=== PATIENT | female | born 1970 | race African-American/Black ===

== ENCOUNTER 2016-09-10 16:27 | Inpatient (IN) | payer OTHER ==
--- NOTE | 2016-09-10 16:39 | ER Document Report ---
ED Medical Screen (RME) - General Chief Complaint: Vaginal Bleeding Stated Complaint: VAGINAL BLEEDING Mode of Arrival: Ambulatory Information source: Patient Notes: pt presents from Dr Sandoval for low iron, recently irregular menses. Also c/o tired, dizzy. Denies hx of anemia. I have greeted and performed a rapid initial assessment of this patient. A comprehensive ED assessment and evaluation of the patient, analysis of test results and completion of the medical decision making process will be conducted by additional ED providers. TRAVEL OUTSIDE OF THE [place] IN LAST 30 DAYS: No Past Medical History - Social History Chew tobacco use (# tins/day): No Frequency of alcohol use: None Drug Abuse: None Renal/ Medical History: Denies: Hx Peritoneal Dialysis Physical Exam - Vital signs Vitals: Temp Pulse Resp BP Pulse Ox 98.2 F 81 16 127/79 H 100 09/10/16 16:34 09/10/16 16:34 09/10/16 16:34 09/10/16 16:34 09/10/16 16:34 Course - Vital Signs Vital signs: Temp Pulse Resp BP Pulse Ox 98.2 F 81 16 127/79 H 100 09/10/16 16:34 09/10/16 16:34 09/10/16 16:34 09/10/16 16:34 09/10/16 16:34
[2016-09-10 17:02] LABS: ABSOLUTE BASOPHILS # (AUTO) 0.1 10^3/uL (0.0-0.2); ABSOLUTE EOSINOPHILS # (AUTO) 0.1 10^3/uL (0.0-0.6); ABSOLUTE LYMPHOCYTES (AUTO) 1.7 10^3/uL (0.5-4.7); ABSOLUTE MONOCYTES (AUTO) 0.3 10^3/uL (0.1-1.4); ABSOLUTE NEUT (AUTO) 3.9 10^3/uL (1.7-8.2); BASOPHILS % (AUTO) 1.7 % (0-2); EOSINOPHILS % (AUTO) 1.2 % (0-6); HEMATOCRIT 23.9 % (36.0-47.0); LYMPHOCYTES % (AUTO) 28.3 % (13-45); MEAN CORPUSCULAR HEMOGLOBIN 15.5 pg (27.0-33.4); MEAN CORPUSCULAR HGB CONC 26.9 g/dL (32.0-36.0); MONOCYTES % (AUTO) 5.2 % (3-13); RED BLOOD COUNT 4.14 10^6/uL (3.72-5.28); RED CELL DISTRIBUTION WIDTH 20.5 % (11.5-14.0); SEGMENTED NEUTROPHILS % (AUTO) 63.6 % (42-78); WHITE BLOOD COUNT 6.2 10^3/uL (4.0-10.5)
[2016-09-10 17:03] LABS: APPEARANCE,URINE CLEAR; BILIRUBIN,URINE NEGATIVE (NEGATIVE); GLUCOSE, URINE NEGATIVE (NEGATIVE); KETONES,URINE NEGATIVE (NEGATIVE); LEUKOCYTE ESTERASE,URINE NEGATIVE (NEGATIVE); NITRITE,URINE NEGATIVE (NEGATIVE); PROTEIN,URINE NEGATIVE (NEGATIVE); URINE SPECIFIC GRAVITY 1.014; UROBILINOGEN,URINE NEGATIVE mg/dL (<2.0)
[2016-09-10 17:07] LABS: PROTHROMBIN TIME 13.7 SEC (11.4-15.4)
[2016-09-10 17:21] LABS: ALANINE AMINOTRANSFERASE 18 U/L (9-52); ALBUMIN 4.6 g/dL (3.5-5.0); ALKALINE PHOSPHATASE 62 U/L (38-126); ANION GAP 12 (5-19); ASPARTATE AMINO TRANSFERASE 21 U/L (14-36); BLOOD UREA NITROGEN 11 mg/dL (7-20); CALCIUM 11.5 mg/dL (8.4-10.2); CARBON DIOXIDE 22 mmol/L (22-30); CHLORIDE 107 mmol/L (98-107); CREATININE RESULT 0.83 mg/dL (0.52-1.25); GLUCOSE 90 mg/dL (75-110); IRON 12.1 ug/dL (37-170); POTASSIUM 3.9 mmol/L (3.6-5.0); SODIUM 141.2 mmol/L (137-145); TOTAL PROTEIN 8.9 g/dL (6.3-8.2)
[2016-09-10 17:25] LABS: HGB HCT DIFFERENCE -4.7
[2016-09-10 17:27] LABS: ANISOCYTOSIS 2+; HELMET CELLS SLIGHT; HYPOCHROMASIA 3+; MICROCYTOSIS 3+; OVALOCYTES SLIGHT; POIKILOCYTOSIS 2+; TARGET CELLS SLIGHT; TEAR DROP CELLS SLIGHT
[2016-09-10 17:28] LABS: MEAN CORPUSCULAR VOLUME 58 fl (80-97)
[2016-09-10 17:30] LABS: HEMOGLOBIN 6.4 g/dL (12.0-15.5)
[2016-09-10] MEDS ORDERED: NORMAL SALINE 250 ML IV PRN (17:57)
[2016-09-10] MEDS ORDERED: FERROUS SULFATE 325 MG TABLET PO ONE (18:15)
[2016-09-10] MEDS ORDERED: ONDANSETRON HCL INJ/PF 4 MG/2 ML SDV IV ONE (18:20)
[2016-09-10] MEDS ORDERED: ESTROGENS,CONJUGATED 25 MG VIAL IV ONE (18:20)
--- NOTE | 2016-09-10 18:21 | ER Document Report ---
ED GI/ - General Chief Complaint: Vaginal Bleeding Stated Complaint: VAGINAL BLEEDING Mode of Arrival: Ambulatory Notes: The patient is a 46-year-old female presents with 2 days of heavy vaginal bleeding and a feeling of lightheadedness. She saw her primary care physician earlier today and was sent to the ER after her hemoglobin was 6 in the office. She has never required a blood transfusion in the past. She says that she is soaking through about 1 pad every 2-3 hours. Denies chest pain, shortness of breath, pelvic pain, urinary symptoms, headache, nausea, vomiting or fevers. TRAVEL OUTSIDE OF THE [place] IN LAST 30 DAYS: No Past Medical History - General Information source: Patient - Social History Smoking Status: Unknown if Ever Smoked Chew tobacco use (# tins/day): No Frequency of alcohol use: None Drug Abuse: None Family History: Reviewed & Not Pertinent Patient has suicidal ideation: No Patient has homicidal ideation: No Renal/ Medical History: Denies: Hx Peritoneal Dialysis Past Surgical History: Reports: Hx Section - x2 - Immunizations Hx Diphtheria, Pertussis, Tetanus Vaccination: Yes Review of Systems - Review of Systems Notes: REVIEW OF SYSTEMS: CONSTITUTIONAL: -fevers, -chills EENT: -eye pain, -difficulty swallowing, -nasal congestion CARDIOVASCULAR:-chest pain, -syncope. RESPIRATORY: -cough, -SOB GASTROINTESTINAL: -abdominal pain, - nausea, -vomiting, -diarrhea GENITOURINARY: -dysuria, -hematuria, +menorrhagia MUSCULOSKELETAL: -back pain, -neck pain SKIN: -rash or skin lesions. HEMATOLOGIC: -easy bruising or bleeding. LYMPHATIC: -swollen, enlarged glands. NEUROLOGICAL: -altered mental status or loss of consciousness, -headache, - neurologic symptoms PSYCHIATRIC: -anxiety, -depression. ALL OTHER SYSTEMS REVIEWED AND NEGATIVE. Physical Exam - Vital signs Vitals: Temp Pulse Resp BP Pulse Ox 98.2 F 81 16 127/79 H 100 09/10/16 16:34 09/10/16 16:34 09/10/16 16:34 09/10/16 16:34 09/10/16 16:34 - Notes Notes: PHYSICAL EXAMINATION: GENERAL: Well-appearing, well-nourished and in no acute distress. HEAD: Atraumatic, normocephalic. EYES: Pupils equal round and reactive to light, extraocular movements intact, sclera anicteric, conjunctiva are pale. ENT: nares patent, oropharynx clear without exudates. Moist mucous membranes. NECK: Normal range of motion, supple without lymphadenopathy LUNGS: Breath sounds clear to auscultation bilaterally and equal. No wheezes rales or rhonchi. HEART: Regular rate and rhythm without murmurs ABDOMEN: Soft, nontender, normoactive bowel sounds. No guarding, no rebound. No masses appreciated. EXTREMITIES: Normal range of motion, no pitting or edema. No cyanosis. NEUROLOGICAL: Cranial nerves grossly intact. Normal speech, normal gait. Normal sensory, motor, and reflex exams. PSYCH: Normal mood, normal affect. SKIN: Warm, Dry, normal turgor, no rashes or lesions noted. Course - Re-evaluation Re-evalutation: 09/10/16 18:21 Patient with symptomatic anemia and heavy vaginal bleeding. Spoke to Dr. Stephanie Brownlee ([facility] urologic surgeon). Recommends 20 mg IV estrogen and 8 mg IV Zofran to help with active bleeding. She will admit the patient to the second floor, but she is about to start a OR case. Ultrasound pending. Patient 's blood pressure is stable at this time. Patient consented for blood transfusion due to hemoglobin 6.4. - Vital Signs Vital signs: Temp Pulse Resp BP Pulse Ox 98.2 F 81 15 127/79 H 89 L 09/10/16 16:34 09/10/16 16:34 09/10/16 19:11 09/10/16 16:34 09/10/16 19:11 - Laboratory Result Diagrams: 09/10/16 16:45 09/10/16 16:45 Laboratory results interpreted by me: 09/10/16 09/10/16 09/10/16 16:45 16:45 16:45 Hgb 6.4 L Hct 23.9 L MCV 58 L MCH 15.5 L MCHC 26.9 L RDW 20.5 H Plt Count 463 H Calcium 11.5 H Iron 12.1 L Total Protein 8.9 H Urine Blood SMALL H Crossmatch 09/10/16 16:45 Hgb Hct MCV MCH MCHC RDW Plt Count Calcium Iron Total Protein Urine Blood Crossmatch See Detail Discharge - Discharge Clinical Impression: Menorrhagia Qualifiers: Menorrahagia type: with regular cycle Qualified Code(s): N92.0 - Excessive and frequent menstruation with regular cycle Anemia Qualifiers: Anemia type: unspecified type Qualified Code(s): D64.9 - Anemia, unspecified Condition: Stable Disposition: ADMITTED INPATIENT Admitting Provider: Dr. Brownlee Unit Admitted: Labor and Delivery
--- NOTE | 2016-09-10 21:34 | EKG REPORT ---
SEVERITY:- OTHERWISE NORMAL ECG - SINUS ARRHYTHMIA, RATE 57-79 : Confirmed by: Quan Allan 10-Sep-2016 21:33:32
--- NOTE | 2016-09-10 21:53 | HISTORY AND PHYSICAL E ---
History and Physical NAME: CLIFF MORENO : 1970 AGE: 46Y ADMITTED: 09/10/2016 ROOM: ED06 CHIEF COMPLAINT: Abnormal bleeding for the last couple of weeks and anemia. HISTORY OF PRESENT ILLNESS: The patient is a 46-year-old, para 2, who generally has normal menstrual cycles, however, for the last couple of weeks has been bleeding up to a pad every 2 hours. She was seen by her primary care today and was told she was anemic with a hemoglobin of 6.5. She was told to come to the hospital. REVIEW OF SYSTEMS: She denies pelvic pain. She does admit frequent headaches, fatigue and some lightheadedness and dizziness. She denies any abnormal vaginal discharge or other easy bleeding or bruising. PAST MEDICAL HISTORY: Unremarkable. PAST SURGICAL HISTORY: x2. HABITS: The patient does not smoke, drink or use street drugs. FAMILY HISTORY: No endometrial cancer. PHYSICAL EXAMINATION: VITAL SIGNS: Temperature is 98.2, heart rate is 81, blood pressure 127/79. Height is 5 feet 7 inches. Weight is 70.9 kg. GENERAL: The patient appears comfortable and in no acute distress. ABDOMEN: Soft and nontender. GENITOURINARY: Shows normal female external genitalia without lesions. On vaginal exam, there is some old blood in the vault, no abnormal discharge. Cervix is without lesion. On bimanual exam, the uterus is slightly enlarged but nontender. EXTREMITIES: Nontender. There is no bruising. DIAGNOSTIC DATA: Ultrasound showed an 8 mm endometrial stripe. There was a 4 cm fibroid present. Her CBC showed hemoglobin to be 6.4 and hematocrit of 23.9. Her coags were normal. IMPRESSION: 1. Abnormal uterine bleeding likely due to uterine fibroid. 2. Symptomatic anemia. PLAN: The patient is to be admitted for IV Premarin to stabilize her bleeding. She also will be transfused 2 units of packed red cells. Hopefully at the time of discharge we can send her home on some Provera and continue workup with endometrial biopsy as an outpatient. DICTATING PHYSICIAN: DAVID QUAN M.D. [id number] PHY#: [id number] ID: [id number] JOB#: [id number] ACCT: [id number] cc:DAVID QUAN M.D. >
[2016-09-10] MEDS ORDERED: ACETAMINOPHEN 325 MG TABLET PO PRN (22:32)
[2016-09-10] MEDS ORDERED: DIPHENHYDRAMINE HCL 25 MG CAPSULE PO PRN (22:33)
[2016-09-10 22:58] LABS: CHLAM PCR NOT DETECTED (NOT DETECT)
[2016-09-10] MEDS ORDERED: ZOLPIDEM TARTRATE 5 MG TABLET PO PRN (23:11)
[2016-09-10] MEDS ORDERED: ESTROGENS,CONJUGATED 25 MG VIAL ONE (23:28)
[2016-09-11] MEDS ORDERED: ONDANSETRON HCL INJ/PF 4 MG/2 ML SDV IV SCH
[2016-09-11] MEDS ORDERED: ESTROGENS,CONJUGATED 25 MG VIAL IV SCH
[2016-09-11] MEDS: RINGERS SOLUTION,LACTATED 1,000 ML IV PRN ×2 (06:16→21:44)
[2016-09-11 09:50] LABS: ABSOLUTE EOSINOPHILS # (AUTO) 0.1 10^3/uL (0.0-0.6); ABSOLUTE LYMPHOCYTES (AUTO) 1.2 10^3/uL (0.5-4.7); ABSOLUTE MONOCYTES (AUTO) 0.3 10^3/uL (0.1-1.4); BASOPHILS % (AUTO) 1.1 % (0-2); EOSINOPHILS % (AUTO) 1.3 % (0-6); HEMATOCRIT 26.3 % (36.0-47.0); HGB HCT DIFFERENCE -3.8; LYMPHOCYTES % (AUTO) 26.2 % (13-45); MEAN CORPUSCULAR HEMOGLOBIN 17.9 pg (27.0-33.4); MEAN CORPUSCULAR HGB CONC 28.6 g/dL (32.0-36.0); MONOCYTES % (AUTO) 6.1 % (3-13); RED BLOOD COUNT 4.19 10^6/uL (3.72-5.28); RED CELL DISTRIBUTION WIDTH 25.5 % (11.5-14.0); SEGMENTED NEUTROPHILS % (AUTO) 65.3 % (42-78); WHITE BLOOD COUNT 4.6 10^3/uL (4.0-10.5)
[2016-09-11 09:53] LABS: HEMOGLOBIN 7.5 g/dL (12.0-15.5)
[2016-09-11 09:54] LABS: MEAN CORPUSCULAR VOLUME 63 fl (80-97)
[2016-09-11 10:15] LABS: HYPOCHROMASIA 1+; MICROCYTOSIS 3+
[2016-09-11 10:16] LABS: ANISOCYTOSIS 3+; OVALOCYTES SLIGHT; POIKILOCYTOSIS 1+; TARGET CELLS SLIGHT
[2016-09-11] MEDS: ACETAMINOPHEN 325 MG TABLET PO PRN ×2 (12:35→22:06)
[2016-09-11 12:47] LABS: PATH REVIEW PATHOLOGIST REVIEWED
[2016-09-11] MEDS ORDERED: ACETAMINOPHEN 325 MG TABLET PO ONE (13:00)
[2016-09-12 00:52] LABS: HEMATOCRIT 30.2 % (36.0-47.0); HGB HCT DIFFERENCE -3.2; MEAN CORPUSCULAR HEMOGLOBIN 19.8 pg (27.0-33.4); MEAN CORPUSCULAR HGB CONC 29.7 g/dL (32.0-36.0); RED BLOOD COUNT 4.52 10^6/uL (3.72-5.28); RED CELL DISTRIBUTION WIDTH 29.8 % (11.5-14.0); WHITE BLOOD COUNT 8.9 10^3/uL (4.0-10.5)
[2016-09-12 01:09] LABS: MEAN CORPUSCULAR VOLUME 67 fl (80-97)
[2016-09-12] MEDS: RINGERS SOLUTION,LACTATED 1,000 ML IV PRN (05:57)
[2016-09-12] MEDS: ACETAMINOPHEN 325 MG TABLET PO PRN (05:57)
--- NOTE | 2016-09-12 10:12 | PDOC DISCHARGE SUMMARY ---
General - Admit/Disc Date/PCP Admission Date/Primary Care Provider: 09/10/16 18:51 Discharge Date: 09/12/16 - Additional Information Discharge Activity: Activity As Tolerated, Balance Activity w/Rest Home Medications: No Home Medications 09/10/16 History of Present Illness History of Present Illness: CLIFF MORENO is a 46 year old female Hospital Course Hospital Course: has done well with IV premarin transfusion complete and feeling much better. Hgb appropriately increased. Indicates vaginal bleeding is minimal at this time. Physical Exam - Physical Exam Vital Signs: Temp Pulse Resp BP Pulse Ox 97.6 F 57 L 17 132/77 H 100 09/12/16 08:48 09/12/16 08:48 09/12/16 08:48 09/12/16 08:48 09/12/16 08:48 Intake & Output 09/11/16 09/12/16 09/13/16 06:59 06:59 06:59 Intake Total 600 1005 Balance 600 1005 General appearance: PRESENT: no acute distress, cooperative Eye exam: PRESENT: conjunctiva pink, PERRLA Vascular exam: PRESENT: normal capillary refill GI/Abdominal exam: PRESENT: soft Result Laboratory Results: 09/12/16 00:37 09/11/16 09/12/16 09:22 00:37 WBC 4.6 8.9 RBC 4.19 4.52 Hgb 7.5 L 9.0 L Hct 26.3 L 30.2 L MCV 63 L D 67 L D MCH 17.9 L 19.8 L MCHC 28.6 L 29.7 L RDW 25.5 H 29.8 H Plt Count 349 297 Seg Neutrophils % 65.3 Lymphocytes % 26.2 Monocytes % 6.1 Eosinophils % 1.3 Basophils % 1.1 Absolute Neutrophils 3.0 Absolute Lymphocytes 1.2 Absolute Monocytes 0.3 Absolute Eosinophils 0.1 Absolute Basophils 0.0 Impressions: Transvaginal US 09/10/16 18:18 IMPRESSION: PROBABLE FIBROID, MEASURING 4 CM. 6 CM RIGHT OVARIAN CYST Plan Discharge Plan: discharge home on continuous OCPs. Dr. Brownlee will see her next week in office for EMB and surgical plan
[2016-09-12 10:45] VITALS: BP 132/77
== END 2016-09-12 10:55 | disposition home or self-care (01) | DRG 812 ==
LOC: ER 16:27 → EH 18:51 → INTOOBSV 18:51 → 2S 22:04 → OBSVTOIN 09-11 03:00
PROVIDERS: ADMIT Specialist; ATTEND Specialist
PROC: 30233N1 Transfusion of Nonautologous Red Blood Cells into Peripheral Vein, Percutaneous Approach (ICD-10-PCS; principal; 2016-09-11)
DX: D62 Acute posthemorrhagic anemia (principal); N93.8 Other specified abnormal uterine and vaginal bleeding; D25.9 Leiomyoma of uterus, unspecified
CPT/HCPCS: 36415; 36430; 76830; 80053; 81001; 83540; 84703; 85025; 85027; 85610; 86850; 86900; 86901; 86920; 87491; 87591; 93005; 93010; 99285; G0378; J1410; J2405; J7120; P9016

== ENCOUNTER 2016-10-23 15:48 | Observation (INO) | payer OTHER ==
[2016-10-23] MEDS ORDERED: RINGERS SOLUTION,LACTATED 1,000 ML IV PRN (16:22)
[2016-10-23] MEDS ORDERED: ACETAMINOPHEN 325 MG TABLET PO PRN (16:24)
[2016-10-23] MEDS ORDERED: MEDROXYPROGESTERONE ACET 10 MG TABLET PO ONE ×3 (16:30→22:00)
[2016-10-23 17:49] LABS: ABSOLUTE BASOPHILS # (AUTO) 0.1 10^3/uL (0.0-0.2); ABSOLUTE EOSINOPHILS # (AUTO) 0.1 10^3/uL (0.0-0.6); ABSOLUTE LYMPHOCYTES (AUTO) 2.1 10^3/uL (0.5-4.7); ABSOLUTE MONOCYTES (AUTO) 0.4 10^3/uL (0.1-1.4); ABSOLUTE NEUT (AUTO) 3.9 10^3/uL (1.7-8.2); BASOPHILS % (AUTO) 1.5 % (0-2); EOSINOPHILS % (AUTO) 1.5 % (0-6); HEMATOCRIT 30.9 % (36.0-47.0); HEMOGLOBIN 9.6 g/dL (12.0-15.5); HGB HCT DIFFERENCE -2.1; MEAN CORPUSCULAR HEMOGLOBIN 22.2 pg (27.0-33.4); MEAN CORPUSCULAR HGB CONC 30.9 g/dL (32.0-36.0); MEAN CORPUSCULAR VOLUME 72 fl (80-97); MONOCYTES % (AUTO) 5.9 % (3-13); RED BLOOD COUNT 4.31 10^6/uL (3.72-5.28); RED CELL DISTRIBUTION WIDTH 27.8 % (11.5-14.0); SEGMENTED NEUTROPHILS % (AUTO) 59.1 % (42-78); WHITE BLOOD COUNT 6.5 10^3/uL (4.0-10.5)
[2016-10-23] MEDS ORDERED: ACETAMINOPHEN WITH CODEINE #3 TABLET PO PRN (17:59)
[2016-10-23 18:06] LABS: ANION GAP 10 (5-19); BLOOD UREA NITROGEN 12 mg/dL (7-20); CALCIUM 10.5 mg/dL (8.4-10.2); CARBON DIOXIDE 24 mmol/L (22-30); CHLORIDE 109 mmol/L (98-107); CREATININE RESULT 0.84 mg/dL (0.52-1.25); GLUCOSE 79 mg/dL (75-110); POTASSIUM 4.6 mmol/L (3.6-5.0); SODIUM 143.4 mmol/L (137-145)
[2016-10-23 18:10] LABS: POLYCHROMASIA 1+
[2016-10-23 18:11] LABS: ANISOCYTOSIS 4+; HYPOCHROMASIA 2+; MICROCYTOSIS 1+; OVALOCYTES 1+; POIKILOCYTOSIS 2+; SCHISTOCYTES 1+; TARGET CELLS 2+; TEAR DROP CELLS SLIGHT
[2016-10-23] MEDS: MEDROXYPROGESTERONE ACET 10 MG TABLET PO SCH (20:45)
[2016-10-23] MEDS ORDERED: ZOLPIDEM TARTRATE 5 MG TABLET PO SCH (22:00)
[2016-10-24 08:15] LABS: ABSOLUTE BASOPHILS # (AUTO) 0.1 10^3/uL (0.0-0.2); ABSOLUTE EOSINOPHILS # (AUTO) 0.1 10^3/uL (0.0-0.6); ABSOLUTE LYMPHOCYTES (AUTO) 1.8 10^3/uL (0.5-4.7); ABSOLUTE MONOCYTES (AUTO) 0.4 10^3/uL (0.1-1.4); ABSOLUTE NEUT (AUTO) 2.8 10^3/uL (1.7-8.2); BASOPHILS % (AUTO) 1.1 % (0-2); HEMATOCRIT 37.1 % (36.0-47.0); HEMOGLOBIN 11.5 g/dL (12.0-15.5); HGB HCT DIFFERENCE -2.6; LYMPHOCYTES % (AUTO) 35.4 % (13-45); MEAN CORPUSCULAR HEMOGLOBIN 23.4 pg (27.0-33.4); MEAN CORPUSCULAR HGB CONC 31.1 g/dL (32.0-36.0); MEAN CORPUSCULAR VOLUME 75 fl (80-97); MONOCYTES % (AUTO) 6.9 % (3-13); RED BLOOD COUNT 4.93 10^6/uL (3.72-5.28); RED CELL DISTRIBUTION WIDTH 27.1 % (11.5-14.0); SEGMENTED NEUTROPHILS % (AUTO) 54.6 % (42-78); WHITE BLOOD COUNT 5.1 10^3/uL (4.0-10.5)
[2016-10-24 08:47] LABS: ANISOCYTOSIS 3+; HYPOCHROMASIA 1+; MICROCYTOSIS 1+; OVALOCYTES SLIGHT; POIKILOCYTOSIS 1+; POLYCHROMASIA SLIGHT; TARGET CELLS SLIGHT
[2016-10-24] MEDS: MEDROXYPROGESTERONE ACET 10 MG TABLET PO SCH (09:29)
[2016-10-24] MEDS ORDERED: MEDROXYPROGESTERONE ACET 10 MG TABLET PO SCH (10:00)
[2016-10-24] MEDS ORDERED: FERROUS SULFATE 325 MG TABLET PO SCH (10:00)
--- NOTE | 2016-10-24 13:16 | PDOC DISCHARGE SUMMARY ---
General - Admit/Disc Date/PCP Admission Date/Primary Care Provider: 10/23/16 15:48 Discharge Date: 10/24/16 - Discharge Diagnosis (1) Anemia Is this a current diagnosis for this admission?: Yes (2) Fibroids Is this a current diagnosis for this admission?: Yes (3) Menorrhagia Is this a current diagnosis for this admission?: Yes - Additional Information Resuscitation Status: Full Code Home Medications: Tranexamic Acid [Lysteda] 650 mg PO TID 10/23/16 History of Present Illness History of Present Illness: CLIFF MORENO is a 46 year old female Hospital Course Hospital Course: patient has responded well to the transfusion and the change in meds to progesterone. bleeding now minimal with no clots. still having some lightheadedness. Physical Exam - Physical Exam Vital Signs: Temp Pulse Resp BP Pulse Ox 98.0 F 79 16 128/84 H 100 10/24/16 12:26 10/24/16 12:26 10/24/16 12:26 10/24/16 12:26 10/24/16 12:26 Intake & Output 10/23/16 10/24/16 10/25/16 06:59 06:59 06:59 Intake Total 1200 Balance 1200 Weight 71.66 kg General appearance: PRESENT: no acute distress, cooperative Eye exam: PRESENT: conjunctiva pale Mouth exam: PRESENT: moist Vascular exam: PRESENT: normal capillary refill Result Laboratory Results: 10/24/16 07:10 10/23/16 17:36 10/23/16 10/23/16 10/23/16 17:04 17:36 17:36 WBC 6.5 RBC 4.31 Hgb 9.6 L Hct 30.9 L MCV 72 L MCH 22.2 L MCHC 30.9 L RDW 27.8 H Plt Count 207 Seg Neutrophils % 59.1 Lymphocytes % 32.0 Monocytes % 5.9 Eosinophils % 1.5 Basophils % 1.5 Absolute Neutrophils 3.9 Absolute Lymphocytes 2.1 Absolute Monocytes 0.4 Absolute Eosinophils 0.1 Absolute Basophils 0.1 Sodium 143.4 Potassium 4.6 Chloride 109 H Carbon Dioxide 24 Anion Gap 10 BUN 12 Creatinine 0.84 Est GFR ( Amer) > 60 Est GFR (Non-Af Amer) > 60 Glucose 79 Calcium 10.5 H Blood Type O POSITIVE Antibody Screen NEGATIVE 10/24/16 07:10 WBC 5.1 RBC 4.93 Hgb 11.5 L Hct 37.1 MCV 75 L MCH 23.4 L MCHC 31.1 L RDW 27.1 H Plt Count 242 Seg Neutrophils % 54.6 Lymphocytes % 35.4 Monocytes % 6.9 Eosinophils % 2.0 Basophils % 1.1 Absolute Neutrophils 2.8 Absolute Lymphocytes 1.8 Absolute Monocytes 0.4 Absolute Eosinophils 0.1 Absolute Basophils 0.1 Sodium Potassium Chloride Carbon Dioxide Anion Gap BUN Creatinine Est GFR ( Amer) Est GFR (Non-Af Amer) Glucose Calcium Blood Type Antibody Screen Plan Discharge Plan: discharge home with progesterone 30 mg q daily. f/u with Dr. Brownlee on Saturday at office if worsening symptoms return to office or ER carmenza. Hysterectomy is scheduled already with Dr. Brownlee on 11/20/2016
[2016-10-24 13:30] VITALS: BP 121/69
== END 2016-10-24 14:07 | disposition home or self-care (01) ==
LOC: 2S 15:48
PROVIDERS: ADMIT Obstetrics & Gynecology; ATTEND Obstetrics & Gynecology
PROC: 30233N1 Transfusion of Nonautologous Red Blood Cells into Peripheral Vein, Percutaneous Approach (ICD-10-PCS; principal; 2016-10-23)
DX: D64.9 Anemia, unspecified (principal); D25.1 Intramural leiomyoma of uterus; N92.0 Excessive and frequent menstruation with regular cycle; R11.2 Nausea with vomiting, unspecified; Z79.899 Other long term (current) drug therapy; Z83.3 Family history of diabetes mellitus
CPT/HCPCS: 86900; 86901; 36415 ×2; 36430; 86850; 84702; 85025 ×2; 80048; 86920; G0378 ×2; G0379; P9016; J3490 ×2

== ENCOUNTER 2016-11-20 05:47 | Day surgery (SDC) | payer OTHER ==
[2016-11-16 13:14] LABS: HEMATOCRIT 40.8 % (36.0-47.0); HGB HCT DIFFERENCE -1.8; MEAN CORPUSCULAR HEMOGLOBIN 24.8 pg (27.0-33.4); MEAN CORPUSCULAR HGB CONC 31.7 g/dL (32.0-36.0); MEAN CORPUSCULAR VOLUME 78 fl (80-97); RED BLOOD COUNT 5.22 10^6/uL (3.72-5.28); RED CELL DISTRIBUTION WIDTH 24.7 % (11.5-14.0); WHITE BLOOD COUNT 6.4 10^3/uL (4.0-10.5)
[2016-11-16 13:20] LABS: APPEARANCE,URINE SLIGHTLY-CLOUDY; BILIRUBIN,URINE NEGATIVE (NEGATIVE); GLUCOSE, URINE NEGATIVE (NEGATIVE); KETONES,URINE NEGATIVE (NEGATIVE); LEUKOCYTE ESTERASE,URINE NEGATIVE (NEGATIVE); NITRITE,URINE NEGATIVE (NEGATIVE); PROTEIN,URINE NEGATIVE (NEGATIVE); URINE SPECIFIC GRAVITY 1.017; UROBILINOGEN,URINE NEGATIVE mg/dL (<2.0)
[2016-11-16 13:33] LABS: ALANINE AMINOTRANSFERASE 19 U/L (9-52); ALBUMIN 4.1 g/dL (3.5-5.0); ALKALINE PHOSPHATASE 71 U/L (38-126); ANION GAP 10 (5-19); ASPARTATE AMINO TRANSFERASE 22 U/L (14-36); BILIRUBIN,DIRECT 0.4 mg/dL (0.0-0.4); BILIRUBIN,TOTAL 1.4 mg/dL (0.2-1.3); BLOOD UREA NITROGEN 13 mg/dL (7-20); CALCIUM 11.1 mg/dL (8.4-10.2); CARBON DIOXIDE 23 mmol/L (22-30); CHLORIDE 106 mmol/L (98-107); CREATININE RESULT 0.78 mg/dL (0.52-1.25); GLUCOSE 79 mg/dL (75-110); POTASSIUM 4.7 mmol/L (3.6-5.0); SODIUM 138.9 mmol/L (137-145); TOTAL PROTEIN 8.6 g/dL (6.3-8.2)
[~2016-11-20 05:47] MED LIST: ACETAMINOPHEN 100 ML IV PRN; CEFAZOLIN 2 GM/D5W RTU 2 GM/50 ML RTUPB IV PRN; LIDOCAINE 0.5% INJ-PF (5 MG/ML) 50 ML SDV SUBCUT PRN
[2016-11-20] MEDS ORDERED: HYDROMORPHONE HCL INJ/PF 2 MG/ML AMPULE ONE (06:45)
[2016-11-20] MEDS ORDERED: FENTANYL CITRATE INJ/PF 250 MCG/5 ML AMPULE ONE (06:45)
[2016-11-20] MEDS ORDERED: MIDAZOLAM 2 MG/2 ML INJ ONE (06:46)
[2016-11-20] MEDS ORDERED: PROPOFOL INJ 200 MG/20 ML VIAL IV ONE (06:46)
[2016-11-20] MEDS ORDERED: ACETAMINOPHEN 100 ML IV ONE (06:46)
[2016-11-20] MEDS ORDERED: BUPIVACAINE HCL 0.25 % INJ/PF (2.5 MG/1 ML) 30 ML VIAL ONE (07:25)
[2016-11-20] MEDS ORDERED: METHYLENE BLUE/PF INJ 100 MG/10 ML SDV ONE (09:49)
[2016-11-20] MEDS ORDERED: PROMETHAZINE HCL INJ 25 MG/1 ML VIAL IV PRN ×2 (10:02)
[2016-11-20] MEDS ORDERED: OXYCODONE-ACETAMINOPHEN 5-325 MG TABLET PO PRN ×4 (10:02→12:09)
[2016-11-20] MEDS ORDERED: ONDANSETRON HCL INJ/PF 4 MG/2 ML SDV IV PRN ×2 (10:02→12:07)
[2016-11-20] MEDS ORDERED: FENTANYL CITRATE INJ/PF 100 MCG/2 ML AMPUL IV PRN ×3 (10:02)
[2016-11-20] MEDS ORDERED: MORPHINE SULFATE 10 MG/ML INJ IV PRN (10:02)
[2016-11-20] MEDS ORDERED: MEPERIDINE HCL/PF INJ 25 MG/1 ML DISP.SYRIN IV PRN (10:02)
[2016-11-20] MEDS ORDERED: DIPHENHYDRAMINE HCL 50 MG/ML VIAL IV PRN (10:02)
[2016-11-20] MEDS ORDERED: FENTANYL CITRATE INJ/PF 100 MCG/2 ML AMPUL ONE (11:33)
[2016-11-20] MEDS ORDERED: HYDROMORPHONE HCL INJ/PF 2 MG/ML AMPULE IV PRN (12:07)
--- NOTE | 2016-11-20 12:38 | OPERATIVE REPORT E ---
Operative Report NAME: CLIFF MORENO : 1970 AGE: 46Y DATE OF SURGERY: 11/20/2016 ROOM: PREOPERATIVE DIAGNOSIS: 1. UTERINE FIBROID WITH MENORRHAGIA. 2. ANEMIA. POSTOPERATIVE DIAGNOSIS: 1. UTERINE FIBROID WITH MENORRHAGIA. 2. ANEMIA. OPERATION: Robotic total laparoscopic hysterectomy with bilateral salpingectomy and cystoscopy. SURGEON: DAVID QUAN M.D. ANESTHESIA: General endotracheal. ESTIMATED BLOOD LOSS: 50 mL. FINDINGS: Enlarged boggy uterus. There were normal ovaries bilaterally. There was evidence of old tubal ligation. The bladder was somewhat adhesed to the anterior lower aspect of the uterus. At the time of cystoscopy, the bladder appeared normal. There were no sutures within the bladder or evidence of cautery. The ureters showed spill of methylene blue tinted urine bilaterally. SPECIMENS TO PATHOLOGY: Uterus and bilateral fallopian tubes. DESCRIPTION OF PROCEDURE: After discussing risks, benefits, and alternatives of the procedure and obtaining informed consent, patient was taken to the operating room where general anesthesia was achieved. She was positioned in the dorsal lithotomy position, prepped and draped in the usual standard fashion. A Vizcarra catheter was placed to keep the bladder drained. A speculum was placed in the vagina and the cervix grasped with a single-tooth tenaculum. The uterus was sounded. A stitch was placed on the anterior aspect of the cervix. The cervix was serially dilated and a large VCare uterine manipulator was placed. The stitch was tied to the V-care to keep it attached. Attention was then turned to the patient's abdomen. 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 The port sites were all premedicated with 0.25% Marcaine. A skin incision was made in the supraumbilical region. The fascia was grasped with Kirt's. It was elevated and incised under direct visualization. Each side of the fascia was tagged with 0 Vicryl. An 8 mm robotic trocar was placed under direct visualization and the abdomen insufflated. The patient was placed in Trendelenburg. A left lower quadrant robotic 8 mm trocar was placed under direct visualization. A right lower quadrant trocar was placed under direct visualization for use at the robot. A 5 mm AirSeal device was placed in the right upper quadrant under direct visualization. The insufflation was turned to AirSeal. The robot was docked. The camera was placed and under direct visualization, the scissors were placed in the surgeon's right hand and attached to monopolar cautery. The fenestrated graspers were then placed under direct visualization for use in the surgeon's left hand. The fenestrated graspers were attached to bipolar and I went to the operating console. At the console, it was realized that the left eye was not working at all. The momd teacher was called and the instruments removed from the patient's abdomen. The console was shut down and restarted. With that, the console had both eyes functional. The instruments were replaced with the scissors for use in the surgeon's right hand under direct visualization, and the fenestrated bipolar in the surgeon's left hand. Each of the fallopian tubes were grasped and the mesosalpinx immediately inferior to them coagulated with bipolar and the tubes were then excised. The bedside assisted living assistant grasped these and removed through the assisted living assistant's trocar. Each round ligament was coagulated with the fenestrated graspers with bipolar and then cut. The bladder flap was created during this process. This was done using sharp and blunt dissection as well as cautery. The uterine ovarian pedicles were coagulated and cut bilaterally. The uterine arteries were skeletonized on either side. The uterine arteries were coagulated. The monopolar cautery was used to incise over the VCare uterine manipulator posteriorly and anteriorly, and this way, the uterine arteries were further skeletonized. They were then further coagulated and cut. The colpotomy was then completed with the monopolar scissors. The uterus was delivered into the patient's vagina and removed by the bedside assisted living assistant. During this process, the robotic scissors were removed and a needle show horse driver placed for use in surgeon's right hand. V-Loc suture was passed through a trocar up through the patient's vagina and into the peritoneal cavity. This was grasped by myself with the needle show horse driver. The cuff was closed in a running fashion incorporating uterosacral ligaments. The stitch was carried approximately retirement back over the cuff. The needle show horse driver was then removed and robotic scissors were used to cut the stitch. The bedside assisted living assistant undocked the arm in which the needle show horse driver had been used on the patient's right. She placed a grasper through this and grasped suture end of the needle which had been presented to her. She delivered this up into the trocar. However, on removing the trocar, it was noted that the needle was not there. I then scrubbed back into the bedside and replaced the trocar. We identified the needle in the pelvis. This was grasped and I removed it under direct visualization through the right lower quadrant trocar. We then visualized the pelvis under a low pressure of 6. Everything appeared to be hemostatic. All the robotic instruments had been removed at that point, and the robot undocked. The remaining trocars were left in place, but the abdomen was desufflated and the patient flattened out of Trendelenburg. We then performed cystoscopy and spill was noted from each ureter. The Vizcarra catheter was replaced after the cystoscopy. I then returned to the abdomen. The trocars were removed and the supraumbilical port site closed with 0 Vicryl. The skin was closed with 3-0 Monocryl in a subcuticular fashion, and Dermabond then applied. The patient was taken out of dorsal lithotomy and awakened from anesthesia. She was taken to recovery in stable condition. All sponge, needle, lap, and instrument counts were correct x2. DICTATING PHYSICIAN: DAVID QUAN M.D. [id number] PHY#: [id number] ID: [id number] JOB#: [id number] ACCT: [id number] cc:DAVID QUAN M.D. > MTDD
[2016-11-20] MEDS: HYDROMORPHONE HCL INJ/PF 2 MG/ML AMPULE IV PRN ×2 (13:34→21:11)
[2016-11-20] MEDS ORDERED: KETOROLAC TROMETHAMINE 60 MG/2 ML SDV ONE (13:47)
[2016-11-20] MEDS ORDERED: DEXAMETHASONE SOD PHOSPHATE INJ 4 MG/1 ML VIAL ONE (13:47)
[2016-11-20] MEDS ORDERED: METOCLOPRAMIDE HCL INJ/PF 10 MG/2 ML SDV ONE (13:47)
[2016-11-20] MEDS ORDERED: NEOSTIGMINE METHYLSULFATE 10 MG/10 ML VIAL ONE (13:47)
[2016-11-20] MEDS ORDERED: ONDANSETRON HCL INJ/PF 4 MG/2 ML SDV ONE (13:47)
[2016-11-20] MEDS ORDERED: SUCCINYLCHOLINE CHLORIDE INJ 200 MG/10 ML VIAL ONE (13:47)
[2016-11-20] MEDS ORDERED: GLYCOPYRROLATE INJ 0.4 MG/2 ML VIAL ONE (13:47)
[2016-11-20] MEDS ORDERED: LIDOCAINE 2% INJ-PF (20 MG/ML) 10 ML AMPUL ONE (13:47)
[2016-11-20] MEDS ORDERED: VECURONIUM BROMIDE INJ 10 MG VIAL IV ONE (13:47)
[2016-11-20] MEDS: LACTATED RINGERS 1000 ML IV PRN ×2 (14:32→23:00)
[2016-11-20] MEDS ORDERED: CEFAZOLIN 2 GM/D5W RTU 2 GM/50 ML RTUPB IV ONE (16:00)
[2016-11-20] MEDS: IBUPROFEN 800 MG TABLET PO SCH (21:20)
[2016-11-20] MEDS ORDERED: DIPHENHYDRAMINE HCL 50 MG/ML VIAL ONE (22:52)
[2016-11-20] MEDS ORDERED: DIPHENHYDRAMINE HCL 50 MG/ML VIAL IV ONE (23:15)
[2016-11-21] MEDS: IBUPROFEN 800 MG TABLET PO SCH (06:30)
[2016-11-21 07:03] LABS: HEMATOCRIT 32.8 % (36.0-47.0); HEMOGLOBIN 10.6 g/dL (12.0-15.5); MEAN CORPUSCULAR HEMOGLOBIN 25.3 pg (27.0-33.4); MEAN CORPUSCULAR HGB CONC 32.3 g/dL (32.0-36.0); MEAN CORPUSCULAR VOLUME 78 fl (80-97); RED BLOOD COUNT 4.18 10^6/uL (3.72-5.28); RED CELL DISTRIBUTION WIDTH 23.9 % (11.5-14.0); WHITE BLOOD COUNT 6.3 10^3/uL (4.0-10.5)
[2016-11-21 08:01] VITALS: BP 108/78
--- NOTE | 2016-11-23 07:43 | DISCHARGE SUMMARY E ---
Discharge Summary NAME: CLIFF MORENO : 1970 AGE: 46Y ADMITTED: 11/20/2016 DISCHARGED: 11/21/2016 INDICATION FOR ADMISSION: 1. Symptomatic uterine fibroid with menorrhagia. 2. Anemia and transfusion. HOSPITAL COURSE: Patient is a 46-year-old female who underwent robotic hysterectomy with bilateral salpingectomy and cystoscopy on 11/20/2016. She had a known 4 cm uterine fibroid and had had prior transfusion of a total of 6 units of packed red cells. At the time of surgery she had some bladder adhesions due to prior C-sections. Her cystoscopy showed normal bladder with patent ureters bilaterally. Her postop course was unremarkable. She was ambulating and tolerating p.o. by the time of discharge. She had also passed flatus. She was voiding without difficulty. Her vital signs were normal postoperatively. Postop hemoglobin and hematocrit were 10.6 and 32.8. White count was 6.3 on the day of discharge. Her pathology specimen shows a benign fibroid. There was no evidence of malignancy on pathology. DISCHARGE DIAGNOSES: 1. Symptomatic uterine fibroid with menorrhagia. 2. Anemia status post robotic hysterectomy with bilateral salpingectomy and cystoscopy. DISCHARGE MEDICATIONS: 1. The patient had a prescription for Percocet 5/325 which had been given preoperatively. 2. She was given a prescription for meloxicam 15 mg 1 p.o. daily p.r.n. pain #30 no refills. DISCHARGE INSTRUCTIONS: 1. The patient was advised to be on pelvic rest and light activity. 2. She is to follow up in 1 week. 3. She was discharged on a regular diet. 4. She was given routine precautions to follow up for increasing pain, foul discharge, fevers, chills, nausea or vomiting. DICTATING PHYSICIAN: DAVID QUAN M.D. [id number] PHY#: [id number] ID: [id number] JOB#: [id number] ACCT: [id number] cc:DAVID QUAN M.D. >
== END 2016-11-21 09:10 | disposition home or self-care (01) ==
LOC: OROUT 05:47 → 2N 12:25 → OROUT 11-21 09:10
PROVIDERS: ATTEND Specialist
PROC: 0UTC4ZZ Resection of Cervix, Percutaneous Endoscopic Approach (ICD-10-PCS; 2016-11-20)
PROC: 0UT74ZZ Resection of Bilateral Fallopian Tubes, Percutaneous Endoscopic Approach (ICD-10-PCS; 2016-11-20)
PROC: 8E0W4CZ Robotic Assisted Procedure of Trunk Region, Percutaneous Endoscopic Approach (ICD-10-PCS; 2016-11-20)
PROC: 0UT94ZZ Resection of Uterus, Percutaneous Endoscopic Approach (ICD-10-PCS; principal; 2016-11-20 07:30)
DX: D25.9 Leiomyoma of uterus, unspecified (principal); K66.0 Peritoneal adhesions (postprocedural) (postinfection); D64.9 Anemia, unspecified
CPT/HCPCS: 58571; S2900; 36415; 80053; 81001; 81025; 840; 85027; 86850; 86900; 86901; 88307; J0131; J0330; J0690; J1100; J1170; J1200; J1885; J2250; J2405; J2704; J2765; J3010; J3490; J7120; Q9968

== ENCOUNTER → 2017-01-23 | Outpatient (CLI) | payer OTHER ==
--- NOTE | 2017-01-23 09:58 | RADIOLOGY REPORT (SQ) ---
EXAM DESCRIPTION: CT HEAD WITHOUT COMPLETED DATE/TIME: 01/23/2017 8:55 am REASON FOR STUDY: VERTIGO OF CENTRAL ORIGIN, BILATERAL H81.43 VERTIGO OF CENTRAL ORIGIN, BILATERAL COMPARISON: None. TECHNIQUE: Axial images acquired through the brain without intravenous contrast. Images reviewed wi th bone, brain and subdural windows. Images stored on PACS. All CT scanners at this facility use dose modulation, iterative reconstruction, and/or weight based d osing when appropriate to reduce radiation dose to as low as reasonably achievable (ALARA). [facility]: Dose Right [facility]: CareDose [facility]: Dose Right [facility]: Teradose 4D [facility]: MediciNova RADIATION DOSE: Up-to-date CT equipment and radiation dose reduction techniques were employed. CTDIv ol: 49.0 mGy. DLP: 881 mGy-cm. mGy. LIMITATIONS: None. FINDINGS: VENTRICLES: Normal size and contour. CEREBRUM: No masses. No hemorrhage. No midline shift. Normal dave/white matter differentiation. N o evidence for acute infarction. CEREBELLUM: No masses. No hemorrhage. No alteration of density. No evidence for acute infarction. EXTRAAXIAL SPACES: No fluid collections. No masses. ORBITS AND GLOBE: No intra- or extraconal masses. Normal contour of globe without masses. CALVARIUM: No fracture. PARANASAL SINUSES: No fluid or mucosal thickening. SOFT TISSUES: No mass or hematoma. OTHER: No other significant finding. IMPRESSION: NORMAL BRAIN CT WITHOUT CONTRAST. TECHNICAL DOCUMENTATION: JOB ID: [id number] Quality ID # [id number]: Final reports with documentation of one or more dose reduction techniques (e.g., Au tomated exposure control, adjustment of the mA and/or kV according to patient size, use of iterative reconstruction technique) 2010 [employer]- All Rights Reserved
== END ==
LOC: RAD 08:43
PROVIDERS: ATTEND Specialist
DX: H81.43 Vertigo of central origin, bilateral (principal)
CPT/HCPCS: 70450

== ENCOUNTER → 2018-07-15 | Outpatient (CLI) | payer OTHER ==
--- NOTE | 2018-07-15 09:15 | WOMENS IMAGING REPORT ---
EXAM DESCRIPTION: 3D SCREENING MAMMO BILAT COMPLETED DATE/TIME: 07/15/2018 8:20 am REASON FOR STUDY: ROUTINE BILATERAL SCREENING;Z12.31 Z12.31 ENCNTR SCREEN MAMMOGRAM FOR MALIGNANT N EOPLASM OF FRANCI COMPARISON: None. TECHNIQUE: Standard craniocaudal and mediolateral oblique views of each breast recorded using digita l acquisition and breast tomosynthesis. LIMITATIONS: None. FINDINGS: No masses, calcifications or architectural distortion. No areas of suspicion. Read with the assistance of CAD. .[facility] - R2 Cenova Version 1.3 .[facility] - R2 Cenova Version 1.3 .[facility] - R2 Cenova Version 2.4 .[facility] [place]2 Cenova Version 2.4 .[facility] - R2 [employer] Version 9.2 IMPRESSION: NORMAL MAMMOGRAM. BIRADS 1. BREAST DENSITY: b. There are scattered areas of fibroglandular density. BIRAD: 1 NEGATIVE RECOMMENDATION: ROUTINE SCREENING COMMENT: The patient has been notified of the results by letter per [place] requirements. Additional no tification policies are in place for contacting patient with suspicious or incomplete findings. Quality ID #225: The [employer] recommends an annual screening mammogram for women aged 40 years or over. This facility utilizes a reminder system to ensure that all patients receive reminder letters, and/or direct phone calls for appointments. This includes reminders for routine scr eening mammograms, diagnostic mammograms, or other Breast Imaging Interventions when appropriate. Th is patient will be placed in the appropriate reminder system. The [employer] (ACR) has developed recommendations for screening MRI of the breast s in certain patient populations, to be used in conjunction with mammography. Breast MRI surveillanc e may be appropriate for women with more than 20% lifetime risk of developing breast cancer as deter mined by genetic testing, significant family history of the disease, or history of mantle radiation f or Hodgkins Disease. ACR Practice Guidelines 2008. DBT Technology DBT is a type of tomographic mammography. With conventional mammography, overlapping breast tissue ma y make lesions difficult to detect, even with good compression. DBT uses an x-ray tube that rotates a round the breast, taking images at different angles. These images are then combined to create thin sl ices of the breast that the radiologist can view as a 3D reconstruction. The [place] unit can perform full-field digital mammograms (2D imaging); or DBT (3D imaging); or both, in a combination mode that quickly performs both the mammogram and the tomosynthesis scan while the breast is still compressed. PQRS 6045F: Fluoroscopic imaging is not utilized for breast tomosynthesis. TECHNICAL DOCUMENTATION: FINDING NUMBER: (1) ASSESSMENT: (1) JOB ID: [id number] [employer]- All Rights Reserved Reading location - IP/workstation name: [facility]-2
== END ==
LOC: WI 07:16
PROVIDERS: ATTEND Family Medicine
DX: Z12.31 Encounter for screening mammogram for malignant neoplasm of breast (principal)
CPT/HCPCS: 77063; 77067

== ENCOUNTER → 2019-07-16 | Outpatient (CLI) | payer OTHER ==
--- NOTE | 2019-07-16 09:34 | WOMENS IMAGING REPORT ---
EXAM DESCRIPTION: BILAT SCREENING MAMMO W/CAD COMPLETED DATE/TIME: 07/16/2019 9:04 am REASON FOR STUDY: Z12.31 ENCOUNTER FOR SCREENING MAMMOGRAM FOR MALIGNANT NEOPLASM OF [id number] E NCNTR SCREEN MAMMOGRAM FOR MALIGNANT NEOPLASM OF FRANCI COMPARISON: 07/15/2018 EXAM PARAMETERS: Standard craniocaudal and mediolateral oblique views of each breast recorded using digital acquisition. Read with the assistance of CAD. [facility] - [employer] Version 9.2 LIMITATIONS: None. FINDINGS: RIGHT BREAST MASSES: No suspicious masses. CALCIFICATIONS: No new or suspicious calcifications. ARCHITECTURAL DISTORTION: None. ASYMMETRY: None noted. OTHER: No other significant findings. LEFT BREAST MASSES: No suspicious masses. CALCIFICATIONS: No new or suspicious calcifications. ARCHITECTURAL DISTORTION: None. ASYMMETRY: Focal asymmetry upper outer quadrant about 7 cm deep to the nipple. OTHER: No other significant findings. IMPRESSION: Focal asymmetry left breast. 0 Incomplete: Needs Additional Imaging Evaluation and/or prior Mammograms for Comparison. BREAST DENSITY: b. There are scattered areas of fibroglandular density. BIRAD: ASSESSMENT: 0 Incomplete: Needs Additional Imaging Evaluation and/or prior Mammograms for C omparison. RECOMMENDATION: RECOMMENDED FOLLOW-UP: Cone compression views and potential ultrasound left breast. The patient will be contacted for additional imaging. COMMENT: The patient has been notified of the results by letter per MQSA requirements. Additional no tification policies are in place for contacting patient with suspicious or incomplete findings. Quality ID #[id number]: The [employer] recommends an annual screening mammogram for women aged 40 years or over. This facility utilizes a reminder system to ensure that all patients receive reminder letters, and/or direct phone calls for appointments. This includes reminders for routine scr eening mammograms, diagnostic mammograms, or other Breast Imaging Interventions when appropriate. Th is patient will be placed in the appropriate reminder system. TECHNICAL DOCUMENTATION: FINDING NUMBER: (1) ASSESSMENT: (1) JOB ID: [id number] [employer]- All Rights Reserved Reading location - IP/workstation name: [email or web address]
== END ==
LOC: WI 07:14
PROVIDERS: ATTEND Internal Medicine
DX: Z12.31 Encounter for screening mammogram for malignant neoplasm of breast (principal); N64.89 Other specified disorders of breast
CPT/HCPCS: 77067